=== PATIENT | male | born 1955 | race Two or more races ===

== ENCOUNTER → 2016-05-10 | Outpatient (CLI) | payer BC, OTHER ==
--- NOTE | 2016-05-10 10:21 | DX ---
KUB, 2 views HISTORY: Evaluate left ureteral stent, T19.1XXA, foreign body in the bladder COMPARISON: None FINDINGS: Fecal material overlies both kidneys. No obvious nephrolithiasis. A left ureteral stent is in excellent position coursing between the region of the left renal pelvis and the urinary bladder. N o obvious calculus is identified adjacent to the stent. There is some faint punctate radiopaque mater ial overlying the region of the lower urinary bladder, that may represent material in the fecal strea m. 2 right pelvic phleboliths are present. There is degenerative spurring and vacuum disk phenomenon between L2 and L4. IMPRESSION: Excellent position of the left ureteral stent.
== END ==
LOC: FIMAGING 09:38
PROVIDERS: ATTEND Specialist
DX: Z09 Encounter for follow-up examination after completed treatment for conditions other than malignant neoplasm (principal); Z96.0 Presence of urogenital implants

== ENCOUNTER → 2016-05-19 | Outpatient (CLI) | payer BC, OTHER ==
[~2016-05-19] MED LIST: IOPAMIDOL (ISOVUE-300) 100 ML BTL IV ONE
--- NOTE | 2016-05-19 16:38 | CT ---
CT Abdomen and Pelvis (Without and With Contrast) CT Urogram 1521 hours History ureteral obstruction (Z 96.0, N13.5). Ureteral stent in place.. Technique: Spiral images were obtained through the abdomen and pelvis without contrast for renal ston e evaluation. 100 mL of Isovue-300 IV contrast were administered and spiral images were obtained thro ugh the abdomen. After a 12-minute delay, spiral imaging was obtained through the abdomen and pelvis. Images were reconstructed in multiple planes for CT urogram imaging. An AP scanogram field mechanic/site lead image was also obtained over the abdomen and pelvis after axial imaging was acquired. Volume rendering was als o performed to visualize contour of the renal collecting system. Dose reduction techniques were utili zed. Findings: On the noncontrast images, there is no evidence of calculus projected over the kidneys or a long the expected path of the ureters. No bladder calculus is seen, as well. A double-J ureteral sten t appears to be in good position on the left curled in the renal pelvis proximally and in the bladder distally. With IV contrast administration, there is good uptake and excretion of contrast by the kidneys. No fi lling defects are seen within the collecting system on either side with normal contour to the renal c ollecting structures, as well as the ureters. The left renal pelvis is somewhat patulous. The bladder has a normal contour. No bladder lesion is seen. The bladder is elongated. The internal contour of t he left ureter is difficult to demarcate secondary to the stent in place. There are a few exophytic c ysts off the lower pole left kidney with the largest measuring 2.3 cm. There is a subcentimeter cyst upper pole right kidney. 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 There is reconstitution of the IVC fr om the right renal vein and hepatic veins. Liver: Normal. Spleen: Normal. Gallbladder and Bile Ducts: Normal. Pancreas: Normal. Adrenals: Normal. Abdominal Aorta: No aneurysm. Pelvic structures: There are no pelvic masses or lymphadenopathy. Bladder: Normal . Appendix: Normal. Bowel Loops: There is incidental diverticulum along the medial aspect of the duodenum adjacent to th e pancreatic head. There are no significantly dilated loops of bowel.. No bowel obstruction, ascites, or significant retroperitoneal lymphadenopathy. There is incidental sm all umbilical hernia containing omental fat. Skeletal system: Vertebral body heights are relatively well-maintained. There are hypertrophic osteo phytes involving the lumbar spine with moderate degenerative disk disease. Underlying spinal stenosis is suspected at L1 to, L2-L3, L3-L4, and L4-L5 secondary to disk bulge. Impression: 1. No evidence of mass associated with the renal pelvis or ureters on either side. 2. Ureteral stent on the left obscures internal architecture of the left ureter. 3. The left renal pelvis is somewhat patulous without focal abdomen noted. 4. No evidence of ureteral or renal pelvic calculus. 5. Incidental cysts associated with the kidneys. 6. 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 Moderate to marked degenerative disk disease involving the lumbar spine with associated spinal juan m noses..
== END ==
LOC: FIMAGING 14:42
PROVIDERS: ATTEND Specialist
DX: Z03.89 Encounter for observation for other suspected diseases and conditions ruled out (principal); Z96.0 Presence of urogenital implants; M51.36 Other intervertebral disc degeneration, lumbar region
CPT/HCPCS: Q9967

== ENCOUNTER → 2016-08-05 | Outpatient (CLI) | payer BC | LOC: FIMAGING 12:48 | PROVIDERS: ATTEND Specialist | DX: Z09 Encounter for follow-up examination after completed treatment for conditions other than malignant neoplasm (principal); Z87.448 Personal history of other diseases of urinary system; Z98.890 Other specified postprocedural states ==